=== PATIENT | female | born 1930 | race Caucasian/White ===

== ENCOUNTER 2018-03-07 08:13 | Inpatient (IN) | payer OTHER, MEDICAID ==
[~2018-03-07] VITALS: Ht 157.5 cm; Wt 77.1 kg
[2018-03-07 08:21] VITALS: BP 175/86
[2018-03-07] MEDS: NACL 0.9% 1,000 ML IV ONE ×2 (08:35→09:05)
[2018-03-07 08:53] LABS: BASOPHILS % (AUTO) 0.3 % (0.0-2.0); EOSINOPHILS # (AUTO) 0.1 K/uL (0-0.4); EOSINOPHILS % (AUTO) 0.7 % (0.0-4.0); HEMATOCRIT 38.2 % (36-48); HEMOGLOBIN 12.6 g/dL (12.0-16.0); LYMPHOCYTES # (AUTO) 2.1 K/uL (2.5-16.5); LYMPHOCYTES % (AUTO) 19.1 % (20.5-51.1); MEAN CORPUSCULAR HEMOGLOBIN 32 pg (27-31); MEAN CORPUSCULAR HGB CONC 33 g/dL (33-37); MEAN CORPUSCULAR VOLUME 97.2 fL (80-94); MONOCYTES # (AUTO) 0.6 K/uL (0.8-1.0); MONOCYTES % (AUTO) 5.5 % (1.7-9.3); NEUTROPHILS # (AUTO) 8.2 K/uL (1.8-7.7); NEUTROPHILS % (AUTO) 74.4 % (42.2-75.2); PLATELET COUNT (AUTO) 322 K/uL (140-450); RED BLOOD CELL COUNT(AUTO) 3.93 MIL/uL (4.20-5.40); RED CELL DISTRIBUTION WIDTH 13.2 % (11.6-13.7)
[2018-03-07 09:08] LABS: ALBUMIN 3.6 g/dL (3.4-5.0); AMYLASE 65 U/L (25-115); ANION GAP 8.1 (8-16); ASPARTATE AMINOTRANSFERASE 19 U/L (15-37); CARBON DIOXIDE 29.1 mmol/L (21-32); CHLORIDE 102 mmol/L (98-107); CREATININE 0.8 mg/dL (0.6-1.3); GLUCOSE 117 mg/dL (74-106); LIPASE 182 U/L (73-393); POTASSIUM 4.2 mmol/L (3.5-5.1); SODIUM SERUM 135 mmol/L (136-145); TOTAL BILIRUBIN 0.5 mg/dL (0.0-1.0); UREA NITROGEN, BLOOD 15 mg/dL (7-18)
[2018-03-07 09:40] LABS: APPEARANCE,URINE CLEAR (CLEAR); BILIRUBIN,URINE NEGATIVE (NEGATIVE); BLOOD, URINE NEGATIVE (NEGATIVE); COLOR,URINE YELLOW (YELLOW); LEUKOCYTE ESTERASE ,URINE NEGATIVE (NEGATIVE); NITRITE, URINE NEGATIVE (NEGATIVE); UGLUCOSE NEGATIVE (NEGATIVE)
[2018-03-07] MEDS ORDERED: DEXT 5% / NACL 0.45% 1,000 ML IV SCH (10:26)
[2018-03-07] MEDS ORDERED: DOCUSATE SODIUM 100 MG GELCAP PO PRN (10:30)
[2018-03-07] MEDS ORDERED: ONDANSETRON 4 MG/2 ML VIAL IM/IVP PRN (10:30)
[2018-03-07] MEDS ORDERED: LORazepam 2 MG/ML VIAL IM/IVP PRN (10:30)
[2018-03-07] MEDS ORDERED: HYDROcodone/APAP 5/325 MG 1 TAB TAB PO PRN (10:30)
[2018-03-07 11:27] LABS: PROTHROMBIN TIME 9.9 secs (10.8-13.4)
[2018-03-07] MEDS ORDERED: MECL-270 PO (11:35)
[2018-03-07] MEDS ORDERED: ESOM40EC PO (11:35)
[2018-03-07] MEDS ORDERED: FOLI400T4 PO (11:35)
[2018-03-07] MEDS ORDERED: FURO-572 PO (11:35)
[2018-03-07] MEDS ORDERED: LINA290C PO (11:35)
[2018-03-07] MEDS ORDERED: ROSU20TA PO (11:35)
[2018-03-07] MEDS ORDERED: DONE5TAB6 PO (11:35)
[2018-03-07] MEDS ORDERED: LOSA100T51 PO (11:35)
[2018-03-07] MEDS ORDERED: TIM.5OS OP (11:35)
[2018-03-07] MEDS ORDERED: BACL10TA4 PO (11:35)
[2018-03-07] MEDS ORDERED: METO-747 PO (11:35)
[2018-03-07] MEDS ORDERED: DULO30EC PO (11:35)
[2018-03-07 11:36] LABS: MAGNESIUM 2.2 mg/dL (1.8-2.4); PHOSPHORUS 4.3 mg/dL (2.5-4.9); THYROID STIMULATING HORMONE 2.89 uIU/mL (0.34-3.74)
[2018-03-07 11:50] VITALS: BP 161/81
[2018-03-07] MEDS ORDERED: BISACODYL 10 MG SUPP RC SCH (12:00)
[2018-03-07] MEDS ORDERED: SODIUM PHOSPHATE 118 ML ENEM RC SCH (12:00)
[2018-03-07] MEDS ORDERED: MECLIZINE 25 MG TAB PO PRN (12:15)
[2018-03-07] MEDS ORDERED: DOCUSATE SODIUM 100 MG GELCAP PO SCH (12:30)
[2018-03-07] MEDS: NACL 0.9% 1,000 ML IV SCH (12:32)
[2018-03-07] MEDS ORDERED: LOSARTAN 50 MG TAB PO SCH (13:00)
[2018-03-07 16:00] VITALS: BP 98/59
[2018-03-07] MEDS: ACETAMINOPHEN 325 MG TAB PO PRN (18:43)
[2018-03-07 20:00] VITALS: BP 111/48
[2018-03-07] MEDS: DONEPEZIL 10 MG TAB PO SCH (20:29)
[2018-03-08] VITALS: BP 112/55
[2018-03-08] MEDS: PANTOPRAZOLE 40 MG TABEC PO SCH (06:02)
[2018-03-08] MEDS: NACL 0.9% 1,000 ML IV SCH ×2 (06:03→21:05)
[2018-03-08 08:00] VITALS: BP 152/68
[2018-03-08 08:02] LABS: BASOPHILS % (AUTO) 0.4 % (0.0-2.0); EOSINOPHILS # (AUTO) 0.1 K/uL (0-0.4); EOSINOPHILS % (AUTO) 1.5 % (0.0-4.0); HEMOGLOBIN 11.3 g/dL (12.0-16.0); LYMPHOCYTES # (AUTO) 2.5 K/uL (2.5-16.5); LYMPHOCYTES % (AUTO) 31.1 % (20.5-51.1); MEAN CORPUSCULAR HEMOGLOBIN 32 pg (27-31); MEAN CORPUSCULAR HGB CONC 33 g/dL (33-37); MEAN CORPUSCULAR VOLUME 97.1 fL (80-94); MONOCYTES # (AUTO) 0.9 K/uL (0.8-1.0); MONOCYTES % (AUTO) 11.6 % (1.7-9.3); NEUTROPHILS # (AUTO) 4.4 K/uL (1.8-7.7); NEUTROPHILS % (AUTO) 55.4 % (42.2-75.2); PLATELET COUNT (AUTO) 259 K/uL (140-450); RED CELL DISTRIBUTION WIDTH 13.2 % (11.6-13.7); WHITE BLOOD COUNT (AUTO) 7.9 K/uL (4.8-10.8)
[2018-03-08] MEDS ORDERED: BOWEL EVACUANT DRINK 4,000 ML PDS PO SCH (08:30)
[2018-03-08] MEDS: VITAMIN B COMPLEX W/C 1 TAB PO SCH (09:39)
[2018-03-08] MEDS: DOCUSATE SODIUM 100 MG GELCAP PO SCH (09:40)
[2018-03-08] MEDS: METOPROLOL SUCCINATE 50 MG TABER PO SCH (09:40)
[2018-03-08] MEDS: DULoxetine 30 MG CAPDR PO SCH (09:40)
[2018-03-08] MEDS: FUROSEMIDE 20 MG TAB PO SCH (09:40)
[2018-03-08] MEDS: TIMOLOL OP 0.5% 5 ML BTL OP SCH (09:41)
[2018-03-08] MEDS: LOSARTAN 50 MG TAB PO SCH (09:41)
[2018-03-08 09:59] LABS: CHOL/HDL RATIO 3.5 (1-4.5)
[2018-03-08 10:53] LABS: ANION GAP 11.3 (8-16); CARBON DIOXIDE 28.3 mmol/L (21-32); CHLORIDE 104 mmol/L (98-107); CREATININE 0.8 mg/dL (0.6-1.3); GLUCOSE 104 mg/dL (74-106); POTASSIUM 3.6 mmol/L (3.5-5.1); SODIUM SERUM 140 mmol/L (136-145); UREA NITROGEN, BLOOD 11 mg/dL (7-18)
[2018-03-08] MEDS: ACETAMINOPHEN 325 MG TAB PO PRN (14:49)
[2018-03-08 16:00] VITALS: BP 142/58
[2018-03-08 20:00] VITALS: BP 169/68
[2018-03-08] MEDS: DONEPEZIL 10 MG TAB PO SCH (20:50)
[2018-03-08 22:00] VITALS: BP 165/64
[2018-03-09 04:00] VITALS: BP 157/64
[2018-03-09] MEDS: PANTOPRAZOLE 40 MG TABEC PO SCH (06:30)
[2018-03-09] MEDS ORDERED: MIDAZOLAM 2 MG/2 ML VIAL ONE (07:25)
[2018-03-09] MEDS ORDERED: fentaNYL 0.05 MG/ML VIAL ONE (07:25)
[2018-03-09] MEDS ORDERED: diphenhydrAMINE 50 MG/ML VIAL ONE (07:26)
[2018-03-09] MEDS: MIDAZOLAM 2 MG/2 ML VIAL IVP ONE ×2 (07:45→08:58)
[2018-03-09] MEDS: fentaNYL 0.05 MG/ML VIAL IVP ONE ×2 (07:46→08:58)
[2018-03-09] MEDS: LOSARTAN 50 MG TAB PO SCH (08:22)
[2018-03-09] MEDS: DULoxetine 30 MG CAPDR PO SCH (08:22)
[2018-03-09] MEDS: DOCUSATE SODIUM 100 MG GELCAP PO SCH (08:23)
[2018-03-09] MEDS: VITAMIN B COMPLEX W/C 1 TAB PO SCH (08:23)
[2018-03-09] MEDS: METOPROLOL SUCCINATE 50 MG TABER PO SCH (08:23)
[2018-03-09] MEDS: FUROSEMIDE 20 MG TAB PO SCH (08:23)
[2018-03-09] MEDS: TIMOLOL OP 0.5% 5 ML BTL OP SCH (08:24)
[2018-03-09 10:26] VITALS: BP 136/70
[2018-03-09 11:19] LABS: BASOPHILS % (AUTO) 0.4 % (0.0-2.0); EOSINOPHILS # (AUTO) 0.1 K/uL (0-0.4); EOSINOPHILS % (AUTO) 1.8 % (0.0-4.0); HEMATOCRIT 37.1 % (36-48); HEMOGLOBIN 12.3 g/dL (12.0-16.0); LYMPHOCYTES # (AUTO) 2.4 K/uL (2.5-16.5); MEAN CORPUSCULAR HEMOGLOBIN 32 pg (27-31); MEAN CORPUSCULAR HGB CONC 33 g/dL (33-37); MEAN CORPUSCULAR VOLUME 96.7 fL (80-94); MONOCYTES # (AUTO) 0.6 K/uL (0.8-1.0); MONOCYTES % (AUTO) 9.8 % (1.7-9.3); NEUTROPHILS # (AUTO) 3.3 K/uL (1.8-7.7); PLATELET COUNT (AUTO) 294 K/uL (140-450); RED BLOOD CELL COUNT(AUTO) 3.83 MIL/uL (4.20-5.40); RED CELL DISTRIBUTION WIDTH 12.9 % (11.6-13.7); WHITE BLOOD COUNT (AUTO) 6.6 K/uL (4.8-10.8)
[2018-03-09 11:28] LABS: ANION GAP 12.3 (8-16); CARBON DIOXIDE 31.2 mmol/L (21-32); CHLORIDE 101 mmol/L (98-107); CREATININE 0.8 mg/dL (0.6-1.3); GLUCOSE 99 mg/dL (74-106); POTASSIUM 3.5 mmol/L (3.5-5.1); SODIUM SERUM 141 mmol/L (136-145); UREA NITROGEN, BLOOD 8 mg/dL (7-18)
[2018-03-09] MEDS: NACL 0.9% 1,000 ML IV SCH (14:17)
[2018-03-09 16:03] VITALS: BP 130/60
[2018-03-09 20:00] VITALS: BP 151/66
[2018-03-09] MEDS: DONEPEZIL 10 MG TAB PO SCH (20:46)
[2018-03-09] MEDS: ACETAMINOPHEN 325 MG TAB PO PRN (20:46)
[2018-03-10 04:00] VITALS: BP 138/65
[2018-03-10] MEDS: PANTOPRAZOLE 40 MG TABEC PO SCH (06:44)
[2018-03-10] MEDS: NACL 0.9% 1,000 ML IV SCH (06:55)
[2018-03-10 08:00] VITALS: BP 142/62
[2018-03-10 08:18] LABS: BASOPHILS # (AUTO) 0.1 K/uL (0.00-0.22); BASOPHILS % (AUTO) 0.8 % (0.0-2.0); EOSINOPHILS # (AUTO) 0.1 K/uL (0-0.4); EOSINOPHILS % (AUTO) 1.8 % (0.0-4.0); HEMATOCRIT 35.6 % (36-48); HEMOGLOBIN 11.7 g/dL (12.0-16.0); LYMPHOCYTES # (AUTO) 2.9 K/uL (2.5-16.5); LYMPHOCYTES % (AUTO) 40.6 % (20.5-51.1); MEAN CORPUSCULAR HEMOGLOBIN 32 pg (27-31); MEAN CORPUSCULAR HGB CONC 33 g/dL (33-37); MEAN CORPUSCULAR VOLUME 97.1 fL (80-94); MONOCYTES # (AUTO) 0.9 K/uL (0.8-1.0); MONOCYTES % (AUTO) 12.2 % (1.7-9.3); NEUTROPHILS # (AUTO) 3.2 K/uL (1.8-7.7); NEUTROPHILS % (AUTO) 44.6 % (42.2-75.2); PLATELET COUNT (AUTO) 279 K/uL (140-450); RED BLOOD CELL COUNT(AUTO) 3.67 MIL/uL (4.20-5.40); RED CELL DISTRIBUTION WIDTH 13.3 % (11.6-13.7); WHITE BLOOD COUNT (AUTO) 7.1 K/uL (4.8-10.8)
[2018-03-10 09:15] LABS: ANION GAP 12.7 (8-16); CARBON DIOXIDE 28.7 mmol/L (21-32); CHLORIDE 102 mmol/L (98-107); CREATININE 0.8 mg/dL (0.6-1.3); GLUCOSE 105 mg/dL (74-106); POTASSIUM 3.4 mmol/L (3.5-5.1); SODIUM SERUM 140 mmol/L (136-145); UREA NITROGEN, BLOOD 13 mg/dL (7-18)
[2018-03-10 09:27] LABS: MAGNESIUM 1.8 mg/dL (1.8-2.4); PHOSPHORUS 5.1 mg/dL (2.5-4.9)
[2018-03-10] MEDS: METOPROLOL SUCCINATE 50 MG TABER PO SCH (09:39)
[2018-03-10] MEDS: DULoxetine 30 MG CAPDR PO SCH (09:39)
[2018-03-10] MEDS: TIMOLOL OP 0.5% 5 ML BTL OP SCH (09:39)
[2018-03-10] MEDS: LOSARTAN 50 MG TAB PO SCH (09:40)
[2018-03-10] MEDS: VITAMIN B COMPLEX W/C 1 TAB PO SCH (09:40)
[2018-03-10] MEDS: DOCUSATE SODIUM 100 MG GELCAP PO SCH (09:40)
[2018-03-10] MEDS: FUROSEMIDE 20 MG TAB PO SCH (09:40)
[2018-03-10] MEDS ORDERED: BISACODYL 5 MG TABEC PO SCH (10:15)
[2018-03-10] MEDS ORDERED: POTASSIUM CHLORIDE 10 MEQ TABER PO SCH (10:16)
[2018-03-10] MEDS ORDERED: METH-1213 PO (10:37)
[2018-03-10] MEDS ORDERED: METH2PDR26 PO (10:45)
== END 2018-03-10 12:50 | disposition home or self-care (01) | DRG 394 ==
LOC: MED 08:13 → MTU 10:38
PROVIDERS: ADMIT General Practice; ATTEND General Practice
PROC: 0DJD8ZZ Inspection of Lower Intestinal Tract, Via Natural or Artificial Opening Endoscopic (ICD-10-PCS; principal; 2018-03-09 07:30)
DX: K62.89 Other specified diseases of anus and rectum (principal); E87.1 Hypo-osmolality and hyponatremia; K57.30 Diverticulosis of large intestine without perforation or abscess without bleeding; K59.03 Drug induced constipation; F03.90 Unspecified dementia, unspecified severity, without behavioral disturbance, psychotic disturbance, mood disturbance, and anxiety; F32.9 Major depressive disorder, single episode, unspecified; F41.1 Generalized anxiety disorder; K21.9 Gastro-esophageal reflux disease without esophagitis; E78.5 Hyperlipidemia, unspecified; F17.210 Nicotine dependence, cigarettes, uncomplicated; I11.9 Hypertensive heart disease without heart failure; T50.905A Adverse effect of unspecified drugs, medicaments and biological substances, initial encounter; F17.200 Nicotine dependence, unspecified, uncomplicated; I25.10 Atherosclerotic heart disease of native coronary artery without angina pectoris; H40.9 Unspecified glaucoma; G89.29 Other chronic pain; K64.4 Residual hemorrhoidal skin tags; E86.0 Dehydration; E66.9 Obesity, unspecified; Z68.31 Body mass index [BMI] 31.0-31.9, adult; Z90.710 Acquired absence of both cervix and uterus; Y92.89 Other specified places as the place of occurrence of the external cause; Z71.3 Dietary counseling and surveillance; Z71.6 Tobacco abuse counseling; Z90.49 Acquired absence of other specified parts of digestive tract; Z88.5 Allergy status to narcotic agent; Z85.00 Personal history of malignant neoplasm of unspecified digestive organ
CPT/HCPCS: 36415; 71045; 80048; 80053; 81003; 82150; 83036; 83690; 83735; 83880; 84100; 84134; 84443; 85025; 85610; 85730; 87081; 93005; 96360; 97116; 99285; J1200; J2250; J3010; J7030; Q0092